=== PATIENT | male | born 1945 | race Caucasian/White ===

== ENCOUNTER 2017-01-22 13:47 | Emergency (ER) | payer MEDICARE, OTHER ==
[~2017-01-22] VITALS: Ht 182.9 cm; Wt 81.6 kg
--- NOTE | 2017-01-22 14:00 | NUR ---
PT CALLED TO TRIAGE, PT NOT IN WAITING ROOM
[2017-01-22] MEDS ORDERED: IV NS 0.9% 1,000 ML BAG IV ONE (17:00)
[2017-01-22] MEDS ORDERED: IV NS 0.9% 1,000 ML ONE (17:06)
[2017-01-22] MEDS ORDERED: IV SET PRIMARY 1 EA INFUS.SET MC ONE (17:06)
[2017-01-22 17:07] LABS: BASOPHILS # (AUTO) 0.6 /CMM (0.0-0.2); BASOPHILS % (AUTO) 4.9 % (0.0-2.0); EOSINOPHILS % (AUTO) 0.1 % (0.0-6.0); HEMATOCRIT 34 % (39-51); HEMOGLOBIN 11.5 g/dL (13.5-17.5); LYMPHOCYTES # (AUTO) 1.7 /CMM (0.8-4.8); LYMPHOCYTES % (AUTO) 13.3 % (20.0-44.0); MEAN CORPUSCULAR HEMOGLOBIN 30 PG (26.0-33.0); MEAN CORPUSCULAR HGB CONC 34 g/dl (31.0-36.0); MEAN CORPUSCULAR VOLUME 88 fL (80-96); MONOCYTES # (AUTO) 0.8 /CMM (0.1-1.30); MONOCYTES % (AUTO) 6.5 % (2.0-12.0); NEUTROPHILS # (AUTO) 9.9 /CMM (1.8-8.9); NEUTROPHILS % (AUTO) 75.2 % (43.0-81.0); PLATELET COUNT (AUTO) 225 /CMM (150-450); RDW COEFFICIENT OF VARIATION 16.5 (11.5-15.0); RED BLOOD CELL COUNT(AUTO) 3.89 MIL/uL (4.5-6.0)
[2017-01-22 17:25] LABS: TROPONIN I 0.132 ng/mL (0.00-0.056)
[2017-01-22 17:26] LABS: CALCIUM, SERUM 8.7 mg/dL (8.5-10.1); CARBON DIOXIDE 24 mmol/L (21-32); CHLORIDE 105 mmol/L (98-107); CREATININE 1.5 mg/dL (0.6-1.3); GLUCOSE 98 mg/dL (74-106); POTASSIUM 4.3 mmol/L (3.5-5.1); SODIUM SERUM 139 mmol/L (136-145); UREA NITROGEN, BLOOD 21 mg/dL (7-18)
[2017-01-22 17:35] LABS: INR 0.97 (0.87-1.13); PROTHROMBIN TIME 10.1 SECS (9.5-12.7)
[2017-01-22 17:39] LABS: ACETAMINOPHEN 2 ug/ml (10-30); ALANINE AMINOTRANSFERASE 18 U/L (12-78); ALBUMIN 2.8 g/dL (3.4-5.0); ALCOHOL, BLOOD < 3 mg/dL (0-0); ALKALINE PHOSPHATASE 80 U/L (46-116); ASPARTATE AMINOTRANSFERASE 22 U/L (15-37); BILIRUBIN,DIRECT 0.3 mg/dL (0.0-0.2); TOTAL PROTEIN, SERUM 5.7 g/dL (6.4-8.2)
[2017-01-22 17:40] LABS: SALICYLATE 1.4 mg/dL (2.8-20.0)
[2017-01-22] MEDS ORDERED: DEXAMETHASONE SOD PHOSPHATE 10 MG/ML VIAL ONE (17:54)
[2017-01-22] MEDS ORDERED: DEXAMETHASONE SOD PHOSPHATE 10 MG/ML VIAL IV ONE (18:00)
[2017-01-22 18:15] LABS: BAND % (MANUAL) 4 % (0.0-5.0); EOSINOPHILS % (MANUAL) 1 % (0-4); LYMPHOCYTES % (MANUAL) 14 % (16-48); METAMYELOCYTES % 1 % (0-0); MONOCYTES % (MANUAL) 5 % (0-11.0); MYELOCYTES % 3 % (0-0); NEUTROPHILS % (MANUAL) 72 (42-76)
--- NOTE | 2017-01-22 18:37 | NUR ---
DR PUCKETT ON THE PHONE WITH NEUROSURGEON DR NGUYỄN
--- NOTE | 2017-01-22 19:04 | NUR ---
RECEIVED REPORT FROM BEN MONDRAGON FOR C.O.C. DAUGHTER AT BEDSIDE.
--- NOTE | 2017-01-22 19:05 | NUR ---
PT AOX2 TO NAME AND . PT APPEARS COMFORTBALE. NO SOB NOTED.
[2017-01-22] MEDS ORDERED: MORPHINE SULFATE INJ 4 MG/ML DISP.SYRIN ONE (19:26)
[2017-01-22] MEDS ORDERED: ONDANSETRON HCL/PF 4 MG/2 ML VIAL ONE (19:26)
[2017-01-22] MEDS ORDERED: ONDANSETRON HCL/PF - ER 4 MG/2 ML VIAL IV ONE (19:30)
[2017-01-22] MEDS ORDERED: MORPHINE SULFATE INJ 2 MG/ML DISP.SYRIN IV ONE (19:30)
--- NOTE | 2017-01-22 20:37 | NUR ---
[place] - 01/22/17 at 2038 by SHYAM PER AMANDA FROM [facility], [facility] WILL NOT ACCEPT PT.
--- NOTE | 2017-01-22 20:50 | NUR ---
ROOM [address] [place] ETA 2130, [facility], ALS UNIT
--- NOTE | 2017-01-22 21:13 | NUR ---
REPORT GIVEN TO BEN SCHROEDER FOR CHUCK
--- NOTE | 2017-01-22 21:57 | NUR ---
[facility] FOR UPDATE ON TRANSPORT, ETA OF 15 MINS WAS GIVEN.
--- NOTE | 2017-01-22 21:57 | NUR ---
[facility] ETA 2215 PM
[2017-01-22 22:24] VITALS: BP 121/82
--- NOTE | 2017-01-22 22:26 | NUR ---
REPORT GIVEN TO [facility] EMT. PT AWARE OF TRANSFER. PT TRANSFERED WILL ALL PERSONAL BELONGINGS. PT VSS. PT TRANSFERED TO [place] [id number] [address] [facility]. EMT GIVEN ALL DOCUMENTS. PT IV INACT AND PATENT. NO S/S INFECTION OR INFILTRATION NOTED. PER EMS TOOK OVER CARE.
== END 2017-01-22 22:30 ==
LOC: ER 13:59
DX: D49.6 Neoplasm of unspecified behavior of brain (principal); I48.92 Unspecified atrial flutter; R51 Headache; E11.22 Type 2 diabetes mellitus with diabetic chronic kidney disease; F32.9 Major depressive disorder, single episode, unspecified; I13.0 Hypertensive heart and chronic kidney disease with heart failure and stage 1 through stage 4 chronic kidney disease, or unspecified chronic kidney disease; I50.9 Heart failure, unspecified; N18.9 Chronic kidney disease, unspecified; Z86.74 Personal history of sudden cardiac arrest; Z87.442 Personal history of urinary calculi
CPT/HCPCS: 36415; 70450; 71010; 80048; 80076; 80329; 84484; 85025; 85730; 93005; 96361; 96374; 96375; 99285; A4606; G0480 ×2; J1100; J2270; J2405; J7030; Z7610